=== PATIENT | female | born 1990 | race Two or more races ===

== ENCOUNTER 2017-08-28 09:48 | Emergency (ER) | payer SELFPAY ==
[~2017-08-28] VITALS: Ht 165.1 cm; Wt 81.6 kg
[2017-08-28 10:09] VITALS: BP 112/68
== END 2017-08-28 12:07 | disposition home or self-care (01) ==
LOC: ER 09:55
DX: R51 Headache (principal); J02.9 Acute pharyngitis, unspecified; M79.1 Myalgia; Z90.89 Acquired absence of other organs